=== PATIENT | female | born 1955 | race Caucasian/White ===

== ENCOUNTER 2017-06-17 07:00 | Outpatient (CLI) | payer OTHER | END 2017-06-17 07:01 | disposition home or self-care (01) | LOC: BICMAMMO 07:00 | PROVIDERS: ATTEND Obstetrics & Gynecology | DX: Z12.31 Encounter for screening mammogram for malignant neoplasm of breast (principal) | CPT/HCPCS: 77063; 77067; G0202 ==

== ENCOUNTER 2018-04-17 09:58 | Outpatient (CLI) | payer OTHER ==
--- NOTE | 2018-04-17 13:46 | MRI ---
RIGHT KNEE MRI WITHOUT IV CONTRAST: History: 62-year-old female with history of right knee pain for several months after a fall. Technique: Multiplanar, multisequence MRI examination of the right knee is performed. FINDINGS: There is evidence for joint effusion with some distention of the suprapatellar recess as well as some fluid in the popliteal fossa and some fluid extension caudally from the popliteal fossa posteriorly and medially along the medial gastrocnemius muscle, evidence for prior popliteal fossa rupture. There is some articular cartilage loss, most marked involving the medial compartment. There is a complex t ear of the medial meniscus including irregular tear at the posterior root and a slap tear component a t the level of the body of the meniscus. The lateral meniscus appears intact. The cruciate ligaments and collateral ligaments and quadriceps and patellar tendons appear intact. No significant acute osse ous abnormality. There is fairly extensive motion artifact on numerous sequences considerably lower the sensitivity of this study. IMPRESSION: Complex tear of the medial meniscus including a displaced slap as well as an irregular tear of the po sterior root. Joint effusion including some fluid in the popliteal fossa and evidence for prior popli teal fossa rupture. Other findings as above. POS: [facility]
== END 2018-04-17 09:59 | disposition home or self-care (01) ==
LOC: BICMRI 09:58
PROVIDERS: ATTEND Orthopaedic Surgery
DX: M25.561 Pain in right knee (principal); S83.231A Complex tear of medial meniscus, current injury, right knee, initial encounter; S43.431A Superior glenoid labrum lesion of right shoulder, initial encounter; M25.461 Effusion, right knee; M94.8X6 Other specified disorders of cartilage, lower leg

== ENCOUNTER 2018-04-26 14:00 | Outpatient (CLI) | payer OTHER ==
[2018-04-26 15:13] LABS: #Basophils 0.1 thou/uL (0.0-0.2); #Eosinphils 0.4 thou/uL (0.0-0.7); #Lymphocytes 2.1 thou/uL (1.20-3.40); #Monocytes 0.7 thou/uL (0.11-0.59); #Neutrophils 5.3 thou/uL (1.40-6.50); %Basophils 0.9 % (0.0-1.0); %Eosinophils 4.4 % (0.0-10.0); %Lymphocytes 24.6 % (21.0-51.0); %Neutrophils 62.1 % (42.0-75.0); Hemoglobin 12.1 g/dL (12.0-16.0); Mean Corpuscular HGB CONC 31.9 g/dL (32.0-36.0); Mean Corpuscular Hemoglobin 25.3 pg (27.0-31.0); Mean Corpuscular Volume 79.1 fL (78.0-98.0); Platelet Count 242 thou/uL (130-400); RBC Distribution Width 14.5 % (11.5-14.5); Red Blood Cell (RBC) Count 4.79 mill/uL (4.20-5.40); White Blood Cell (WBC) Count 8.5 thou/uL (4.8-10.8)
[2018-04-26 15:29] LABS: Anion Gap 13 mmol/L (10-20); BUN (Urea Nitrogen) 12 mg/dL (9.8-20.1); Calc. Creatinine Clearance 0 mL/min (70-130); Calcium 8.9 mg/dL (7.8-10.44); Carbon Dioxide 22 mmol/L (23-31); Chloride 108 mmol/L (98-107); Estimated GFR-MDRD 71; Glucose 129 mg/dL (80-115); Potassium 4.3 mmol/L (3.5-5.1); Sodium 139 mmol/L (136-145)
--- NOTE | 2018-04-27 07:50 | EKG ---
Test Reason : Blood Pressure : / mmHG Vent. Rate : 072 BPM Atrial Rate : 072 BPM P-R Int : 160 ms QRS Dur : 078 ms QT Int : 416 ms P-R-T Axes : 040 076 027 degrees QTc Int : 455 ms Normal sinus rhythm Nonspecific T wave abnormality Abnormal ECG When compared with ECG of 01-APR-2015 12:41, No significant change was found Confirmed by DR. Terence RODRIGUEZ ([id number]) on 04/27/2018 7:49:29 AM Referred By: SURINDER Confirmed By:DR. Terence RODRIGUEZ
== END 2018-04-26 14:01 | disposition home or self-care (01) ==
LOC: LABBT 14:00
PROVIDERS: ATTEND Orthopaedic Surgery
DX: Z01.818 Encounter for other preprocedural examination (principal); S83.206A Unspecified tear of unspecified meniscus, current injury, right knee, initial encounter
CPT/HCPCS: 80048; 85025; 93005; 93010

== ENCOUNTER 2018-04-28 07:19 | Day surgery (SDC) | payer OTHER ==
[2018-04-26 14:20] VITALS: BMI 33.3
[2018-04-28] MEDS ORDERED: PROPOFOL 20 ML ONE (07:53)
[2018-04-28] MEDS ORDERED: CEFAZOLIN 2 GM/50 ML BAG ONE (09:00)
--- NOTE | 2018-04-28 11:26 | OP ---
DATE OF PROCEDURE: 04/28/2018 PREOPERATIVE DIAGNOSIS: Right knee posterior horn medial meniscus tear. POSTOPERATIVE DIAGNOSES: 1. Right knee posterior horn medial meniscus tear. 2. 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 PROCEDURE: 1. Knee arthroscopy, partial medial meniscectomy. 2. Debridement and shaving of unstable chondral flaps medial femoral condyle. SURGEON: Dr. Emery Cornejo [employer]: None. BLOOD LOSS: Minimal. COMPLICATIONS: None. ANESTHESIA: She had general anesthetic as well as a local knee block. DISPOSITION: She did go to day stay in stable condition. INDICATIONS: This 62-year-old active female comes in complaining of pain, swelling, and catching of the knee. An MRI scan confirmed degenerative meniscus tear. At this time, she opted to have surgery . DESCRIPTION OF PROCEDURE: After all appropriate consent forms were explained and signed, she was waylon en back to the operating room and at this time was given general anesthetic. Once level of anesthesi a was appropriate, a tourniquet was placed on the right thigh and leg was placed in an arthroscopic l eg gordon. The limb was then prepped and draped in standard surgical fashion. Limb was exsanguinate d and tourniquet taken up to 300 mmHg. An inferolateral portal was established and the scope was presley miquel into the knee joint. A needle localization technique was then used to make a medial working port al. Diagnostic arthroscopy commenced in the notch, the ACL and PCL probed and found to be intact. T here was a significant amount of synovitic changes and the knee was bloody at this time. The surface energy probe was inserted. Hemostasis was achieved. We turned our attention to the medial compartm ent. Unstable chondral flaps were debrided leaving us a fairly large area of grade 3 changes. Tibia l plateau was in good condition. Large complex degenerative tear of the posterior horn of the medial meniscus including a radial horizontal cleavage components was taken back down to a stable base. We left as much meniscus as possible. The lateral compartment showed the meniscus, femur, and tibia to be in good condition. Patellofemoral joint was in good condition. There was again some significant synovitic changes in medial and lateral gutters as well as suprapatellar pouch, any area that looked like it was prompt to bleed was coagulated. At this time, the scope was removed, the knee was drain ed, and each portal was closed with simple nylon stitch. Bulky sterile dressing was applied and the tourniquet let down. Toes pinked up nicely. The patient was awakened, taken back to day stay in sta ble condition.
== END 2018-04-28 11:15 | disposition home or self-care (01) ==
LOC: SDC 07:19
PROVIDERS: ATTEND Orthopaedic Surgery
PROC: 0SBC4ZZ Excision of Right Knee Joint, Percutaneous Endoscopic Approach (ICD-10-PCS; principal; 2018-04-28)
DX: S83.231A Complex tear of medial meniscus, current injury, right knee, initial encounter (principal); E78.00 Pure hypercholesterolemia, unspecified; F32.9 Major depressive disorder, single episode, unspecified; K21.9 Gastro-esophageal reflux disease without esophagitis; I10 Essential (primary) hypertension; L24.81 Irritant contact dermatitis due to metals; Z79.899 Other long term (current) drug therapy; Z96.652 Presence of left artificial knee joint
CPT/HCPCS: G8978-GP-CJ; G8979-GP-CJ; G8980-GP-CJ; J2704

== ENCOUNTER 2018-06-28 11:13 | Outpatient (CLI) | payer OTHER | END 2018-06-28 11:14 | disposition home or self-care (01) | LOC: BICMAMMO 11:13 | PROVIDERS: ATTEND Obstetrics & Gynecology | DX: Z12.31 Encounter for screening mammogram for malignant neoplasm of breast (principal); R92.1 Mammographic calcification found on diagnostic imaging of breast; Z80.3 Family history of malignant neoplasm of breast | CPT/HCPCS: 77063; 77067 ==

== ENCOUNTER 2018-07-26 10:34 | Day surgery (SDC) | payer OTHER ==
[2018-07-25 15:17] VITALS: BMI 33.6
[2018-07-26] MEDS ORDERED: PROPOFOL 200 MG/20 ML VIAL ONE (11:47)
--- NOTE | 2018-07-26 14:39 | OP ---
DATE OF PROCEDURE: 07/26/2018 PROCEDURE PERFORMED: Colonoscopy. PREMEDICATION: Given by the Anesthesiology Department. PREPROCEDURE DIAGNOSIS: Colon screening, average risk. POSTPROCEDURE DIAGNOSIS: Normal colon exam. DESCRIPTION OF PROCEDURE: Written consents were obtained prior to procedure. After adequate sedation, rectal exam was performed and was normal. The endoscope was advanced to the cecum. The quality of the bowel prep was good. The left lower colon was somewhat torturous. The cecum, ascending colon, hepatic flexure, transverse colon, splenic flexure, descending colon, rectosigmoid colon all appeared normal. Retroflexion did not show any abnormality. The patient tolerated the procedure well. ASSESSMENT: Normal colon exam. RECOMMENDATION: Repeat exam in 10 years. Job ID: [id number]
== END 2018-07-26 14:00 | disposition home or self-care (01) ==
LOC: SDC 10:34
PROVIDERS: ATTEND Internal Medicine Gastroenterology
PROC: 0DJD8ZZ Inspection of Lower Intestinal Tract, Via Natural or Artificial Opening Endoscopic (ICD-10-PCS; principal; 2018-07-26)
DX: Z12.11 Encounter for screening for malignant neoplasm of colon (principal); I10 Essential (primary) hypertension; Z79.899 Other long term (current) drug therapy
CPT/HCPCS: J2704

== ENCOUNTER 2018-08-23 13:54 | Outpatient (CLI) | payer OTHER ==
--- NOTE | 2018-08-23 14:27 | RAD ---
CHEST TWO VIEWS: History: Chest pain. Comparison: None. FINDINGS: Lungs are clear. No pneumothorax or effusion. Cardiac silhouette and mediastinal contours are within normal limits. IMPRESSION: No acute intrathoracic abnormality. POS: [facility]
== END 2018-08-23 13:55 | disposition home or self-care (01) ==
LOC: BICRAD 13:54
PROVIDERS: ATTEND Internal Medicine
DX: R07.9 Chest pain, unspecified (principal)
CPT/HCPCS: 71046

== ENCOUNTER 2021-03-10 08:11 | Outpatient (CLI) | payer BC | END 2021-03-10 08:12 | disposition home or self-care (01) | LOC: BICMAMMO 08:11 | PROVIDERS: ATTEND Physician Assistant | DX: Z12.31 Encounter for screening mammogram for malignant neoplasm of breast (principal); Z98.890 Other specified postprocedural states | CPT/HCPCS: 77063; 77067 ==

== ENCOUNTER 2022-03-10 09:31 | Outpatient (CLI) | payer BC | END 2022-03-10 09:32 | disposition home or self-care (01) | LOC: BICMAMMO 09:31 | PROVIDERS: ATTEND Physician Assistant | DX: Z12.31 Encounter for screening mammogram for malignant neoplasm of breast (principal); R92.1 Mammographic calcification found on diagnostic imaging of breast; Z98.890 Other specified postprocedural states | CPT/HCPCS: 77063; 77067 ==

== ENCOUNTER 2023-04-08 12:16 | Outpatient (CLI) | payer BC | END 2023-04-08 12:17 | disposition home or self-care (01) | LOC: BICMAMMO 12:16 | PROVIDERS: ATTEND Internal Medicine | DX: Z12.31 Encounter for screening mammogram for malignant neoplasm of breast (principal); Z98.890 Other specified postprocedural states | CPT/HCPCS: 77063; 77067 ==

== ENCOUNTER 2024-01-12 13:13 | Outpatient (CLI) | payer BC | END 2024-01-12 13:14 | disposition home or self-care (01) | LOC: RAD 13:13 | PROVIDERS: ATTEND Internal Medicine | DX: R06.00 Dyspnea, unspecified (principal) | CPT/HCPCS: 71046 ==